=== PATIENT | female | born 1930 | race Two or more races ===

== ENCOUNTER 2021-02-14 07:33 | Inpatient (IN) | payer OTHER ==
[~2021-02-14] VITALS: Ht 157.5 cm; Wt 45.4 kg
[~2021-02-14 07:33] MED LIST: ACEBUTOLOL HCL200 MG; ACTIGALL300 MG PO; AVAPRO300 MG PO; ENALAPRILA; GLUMETZA1000 MG; PANTOPRAZOLE SO40 MG PO; PROPAFENONE HC150 MG; PROTECT IRON T1 EACH PO; PROTONIX40 MG; SIMVASTATIN10 MG; URSODIOL 300 MG PO
[2021-02-18] MEDS ORDERED: VASOTEC20 MG (08:43)
[2021-02-18] MEDS ORDERED: DICLOFENAC POTA50 MG (08:43)
[2021-02-18] MEDS ORDERED: PROTECT PLUS S1 EACH (08:45)
[2021-02-19] MEDS ORDERED: XARELTO10 MG PO (07:14)
[2021-02-19] MEDS ORDERED: OXYC1TAB9 PO (07:14)
[2021-02-19] MEDS ORDERED: INTEGRA PLUS C1 EACH PO (07:14)
[2021-02-19] MEDS ORDERED: BACTRIM DS TAB1 EACH PO (07:14)
== END 2021-02-19 16:25 | DRG 522 ==
LOC: SURG 02-17 06:30 → O/R 02-17 06:30 → SURH 02-17 07:51 → SURG 02-17 20:30
PROVIDERS: ADMIT Orthopaedic Surgery Sports Medicine; ATTEND Orthopaedic Surgery Sports Medicine
PROC: 0SRR0JZ Replacement of Right Hip Joint, Femoral Surface with Synthetic Substitute, Open Approach (ICD-10-PCS; principal; 2021-02-17 17:45)
DX: S72.041A Displaced fracture of base of neck of right femur, initial encounter for closed fracture (principal); Z20.822 Contact with and (suspected) exposure to COVID-19; I48.0 Paroxysmal atrial fibrillation; E11.9 Type 2 diabetes mellitus without complications; I10 Essential (primary) hypertension